=== PATIENT | male | born 1985 | race Caucasian/White ===

== ENCOUNTER 2023-04-30 11:50 | Emergency (ER) | payer MEDICAID ==
[~2023-04-30] VITALS: Ht 188 cm; Wt 127.0 kg
[2023-04-30 12:22] VITALS: BP 143/97; PULSE 79; RESP 18; TEMP 97.6; O2SAT 98
[2023-04-30 12:52] LABS: APPEARANCE,URINE CLEAR (CLEAR); BILIRUBIN,URINE NEGATIVE (NEGATIVE); BLOOD, URINE 2+ (NEGATIVE); COLOR,URINE YELLOW (YELLOW); LEUKOCYTE ESTERASE ,URINE TRACE (NEGATIVE); NITRITE, URINE NEGATIVE (NEGATIVE); UGLUCOSE 3+ (NEGATIVE)
[2023-04-30] MEDS ORDERED: CEPH-588 PO (13:12)
[2023-04-30 13:27] VITALS: BP 135/88; PULSE 79; RESP 18; TEMP 98; O2SAT 98
--- NOTE | 2023-04-30 13:31 | NUR ---
Patient discharged with v/s stable. Written and verbal after care instructions FOR UTI given and explained. Patient alert, oriented and verbalized understanding of instructions. Ambulatory with steady gait. All questions addressed prior to discharge. ID band removed. Patient advised to follow up with PMD. Rx of KEFLEX given. Opportunity to ask questions provided and answered.
== END 2023-04-30 13:31 | disposition home or self-care (01) ==
LOC: MED 11:50
DX: N39.0 Urinary tract infection, site not specified (principal); Z79.899 Other long term (current) drug therapy
CPT/HCPCS: 81001; 87086; 87491; 99283

== ENCOUNTER 2023-05-09 21:14 | Emergency (ER) | payer MEDICAID ==
[~2023-05-09] VITALS: Ht 188 cm; Wt 127.0 kg
[~2023-05-09 21:14] MED LIST: CEPH-588 PO
[2023-05-09 21:46] VITALS: BP 148/92; PULSE 90; RESP 18; TEMP 97.9; O2SAT 97
[2023-05-10 03:07] LABS: BASOPHILS % (AUTO) 0.6 % (0.0-2.0); EOSINOPHILS # (AUTO) 0.1 K/uL (0-0.4); EOSINOPHILS % (AUTO) 1.9 % (0.0-4.0); HEMATOCRIT 42.9 % (36-52); HEMOGLOBIN 14.9 g/dL (12.0-18.0); LYMPHOCYTES # (AUTO) 3.3 K/uL (2.0-11.5); LYMPHOCYTES % (AUTO) 42.1 % (20.5-51.1); MEAN CORPUSCULAR HEMOGLOBIN 32 pg (27-31); MEAN CORPUSCULAR HGB CONC 35 g/dL (33-37); MONOCYTES # (AUTO) 0.5 K/uL (0.8-1.0); NEUTROPHILS # (AUTO) 3.9 K/uL (1.8-7.7); NEUTROPHILS % (AUTO) 49.4 % (42.2-75.2); PLATELET COUNT (AUTO) 262 K/uL (140-450); RED BLOOD CELL COUNT(AUTO) 4.71 MIL/uL (4.20-6.10); RED CELL DISTRIBUTION WIDTH 12.9 % (11.6-13.7); WHITE BLOOD COUNT (AUTO) 7.9 K/uL (4.8-10.8)
[2023-05-10 03:20] LABS: INR 0.91 (0.8-1.2); PARTIAL THROMBOPLASTIN TIME 25.3 secs (22-35.6); PROTHROMBIN TIME 9.6 secs (10.8-13.4)
[2023-05-10 03:24] LABS: ALBUMIN 3.6 g/dL (3.4-5.0); ANION GAP 14.2 (8-16); CALCIUM 8.5 mg/dL (8.5-10.1); CARBON DIOXIDE 24.7 mmol/L (21-32); POTASSIUM 3.9 mmol/L (3.5-5.1); TOTAL BILIRUBIN 0.4 mg/dL (0.0-1.0); TOTAL PROTEIN, SERUM 7.2 g/dL (6.4-8.2)
[2023-05-10] MEDS ORDERED: HYDR25SU91 RC (04:09)
== END 2023-05-10 04:20 | disposition home or self-care (01) ==
LOC: MED 21:14
DX: K62.5 Hemorrhage of anus and rectum (principal); Z79.899 Other long term (current) drug therapy
CPT/HCPCS: 36415; 80053; 85025; 85610; 85730; 99283

== ENCOUNTER 2024-03-13 05:40 | Emergency (ER) | payer SELFPAY ==
[~2024-03-13] VITALS: Ht 172.7 cm; Wt 156.0 kg
[~2024-03-13 05:40] MED LIST changes: +HYDR25SU91 RC
[2024-03-13 05:48] VITALS: BP 157/103; PULSE 68; RESP 16; TEMP 97.7; O2SAT 96
[2024-03-13] MEDS: KETOROLAC 60 MG/2 ML VIAL IM ONE (06:17)
[2024-03-13] MEDS ORDERED: IBUP-2213 PO (06:19)
[2024-03-13 06:36] VITALS: BP 145/90; PULSE 69; RESP 18; TEMP 97.8; O2SAT 97
== END 2024-03-13 06:36 | disposition home or self-care (01) ==
LOC: MED 05:40
DX: M54.50 Low back pain, unspecified (principal); E11.9 Type 2 diabetes mellitus without complications; Z79.4 Long term (current) use of insulin; Z79.899 Other long term (current) drug therapy
CPT/HCPCS: 96372; 99283; J1885

== ENCOUNTER 2024-06-29 19:10 | Emergency (ER) | payer MEDICAID ==
[~2024-06-29] VITALS: Ht 188 cm; Wt 154.3 kg
[~2024-06-29 19:10] MED LIST changes: +IBUP-2213 PO
[2024-06-29 19:29] VITALS: BP 114/77; PULSE 66; RESP 20; TEMP 97.9; O2SAT 95
[2024-06-29] MEDS: KETOROLAC 30 MG/ML VIAL IM ONE (20:02)
[2024-06-29] MEDS ORDERED: ACET500T99 PO (21:42)
[2024-06-29] MEDS ORDERED: IBUP-2213 PO (21:42)
[2024-06-29 21:53] VITALS: BP 114/77; PULSE 66; RESP 20; TEMP 97.9; O2SAT 95
== END 2024-06-29 21:53 | disposition home or self-care (01) ==
LOC: MED 19:28
DX: R07.81 Pleurodynia (principal); R07.89 Other chest pain; E11.9 Type 2 diabetes mellitus without complications; Z79.899 Other long term (current) drug therapy
CPT/HCPCS: 71101; 96372; 99283; J1885